=== PATIENT | female | born 1950 | race Native Hawaiian/Other Pacific Islander ===

== ENCOUNTER 2021-02-16 18:11 | Outpatient (CLI) | payer OTHER | END 2021-02-16 19:34 | disposition home or self-care (01) | LOC: LAB 18:11 | PROVIDERS: ATTEND Nurse Practitioner Family | DX: L02.212 Cutaneous abscess of back [any part, except buttock and flank] (principal) | CPT/HCPCS: 87070; 87077; 87186; 87205 ==